=== PATIENT | female | born 1935 | race Two or more races ===

== ENCOUNTER 2017-11-25 08:09 | Emergency (ER) | payer OTHER ==
[~2017-11-25] VITALS: Ht 162.6 cm; Wt 62.6 kg
[2017-11-25] MEDS ORDERED: ACETAMINOPHEN 325 MG TABLET ONE (08:18)
[2017-11-25] MEDS ORDERED: TDAP [DIPH/PERTUSSIS/TET] 0.5 ML VIAL IM ONE ×2 (08:18→08:30)
[2017-11-25] MEDS ORDERED: ACETAMINOPHEN 325 MG TABLET PO ONE (08:30)
--- NOTE | 2017-11-25 09:44 | NUR ---
[facility] CALLED
--- NOTE | 2017-11-25 09:53 | NUR ---
CALL BACK FROM DR HANEY
[2017-11-25 10:11] LABS: CALCIUM, SERUM 7.8 mg/dL (8.5-10.1); CARBON DIOXIDE 30 mmol/L (21-32); CHLORIDE 104 mmol/L (98-107); CREATININE 0.9 mg/dL (0.6-1.3); GLUCOSE 98 mg/dL (74-106); POTASSIUM 3.7 mmol/L (3.5-5.1); SODIUM SERUM 141 mmol/L (136-145); UREA NITROGEN, BLOOD 16 mg/dL (7-18)
[2017-11-25 10:16] LABS: INR 0.9 (0.85-1.15)
[2017-11-25 10:18] LABS: BASOPHILS # (AUTO) 0.1 /CMM (0.0-0.2); EOSINOPHILS % (AUTO) 0.6 % (0.0-6.0); MONOCYTES # (AUTO) 0.6 /CMM (0.1-1.30)
[2017-11-25 10:21] LABS: BASOPHILS % (AUTO) 1.1 % (0.0-2.0); HEMATOCRIT 35 % (33-45); HEMOGLOBIN 11.7 g/dL (11.5-14.8); LYMPHOCYTES % (AUTO) 8.2 % (20.0-44.0); MEAN CORPUSCULAR HGB CONC 33 g/dl (31.0-36.0); MEAN CORPUSCULAR VOLUME 88 fL (82-100); MONOCYTES % (AUTO) 5.3 % (2.0-12.0); NEUTROPHILS # (AUTO) 10.4 /CMM (1.8-8.9); NEUTROPHILS % (AUTO) 84.8 % (43.0-81.0); PLATELET COUNT (AUTO) 300 /CMM (150-450); RDW COEFFICIENT OF VARIATION 13.4 (11.5-15.0); RED BLOOD CELL COUNT(AUTO) 3.96 MIL/uL (4.0-5.2); WHITE BLOOD COUNT (AUTO) 12.2 K/uL (4.3-11.0)
--- NOTE | 2017-11-25 10:32 | NUR ---
CALL BACK FROM MART RODRIGUEZ FROM [facility] W/ TRANSFER INFO: GOING TO [facility],DR PERKINS,[facility] TBR=[id number],REPORT TO [phone]
--- NOTE | 2017-11-25 11:03 | NUR ---
pt made aware of plan of care. Awaiting transfer states "pain better now. I want to go home" Reiterated plan of care
--- NOTE | 2017-11-25 11:22 | NUR ---
[facility] here to transfer pt to [facility]. Report given to Jayesh EMT unit [facility] and [facility] w/RN Carlene in [facility]. Pt aware of plan of care no acute changes NAD. Transported /[facility] via ambulance in stable condition
[2017-11-25 11:27] VITALS: BP 142/77
[2017-11-25 11:27] LABS: NEUTROPHILS % (MANUAL) 83 (42-76)
[2017-11-25 11:28] LABS: LYMPHOCYTES % (MANUAL) 10 % (16-48); MONOCYTES % (MANUAL) 7 % (0-11.0)
== END 2017-11-25 11:26 | disposition short-term general hospital (02) ==
LOC: ER 08:10
DX: S32.512A Fracture of superior rim of left pubis, initial encounter for closed fracture (principal); S32.592A Other specified fracture of left pubis, initial encounter for closed fracture; S32.492A Other specified fracture of left acetabulum, initial encounter for closed fracture; S50.02XA Contusion of left elbow, initial encounter; Z88.0 Allergy status to penicillin; W01.0XXA Fall on same level from slipping, tripping and stumbling without subsequent striking against object, initial encounter; Y93.89 Activity, other specified; Y92.89 Other specified places as the place of occurrence of the external cause; Y99.8 Other external cause status
CPT/HCPCS: 36415; 72192-TC; 73552; 80048-TC; 85025-TC; 85730-TC; 90715; A4606; A6402; Z7610